=== PATIENT | female | born 1945 | race Caucasian/White ===

== ENCOUNTER 2023-09-02 11:35 | Inpatient (IN) | payer OTHER ==
[~2023-09-02] VITALS: Ht 165.1 cm; Wt 101.6 kg
[~2023-09-02 11:35] MED LIST: ASPI-1749 PO; DOCU-299 PO; GABA300C PO; LISI-953 PO; LORA10TA19 PO; NITR0.4T2 SL; OMEP40EC24 PO; ROSU5TAB PO; SYN.075 PO
[2023-09-02 11:43] VITALS: BP 142/38; PULSE 52; RESP 18; TEMP 97.8; O2SAT 97
[2023-09-02 12:25] LABS: BASOPHILS % (AUTO) 0.3 % (0.0-2.0); EOSINOPHILS # (AUTO) 0.1 K/uL (0-0.4); EOSINOPHILS % (AUTO) 1.5 % (0.0-4.0); HEMATOCRIT 30.5 % (36-48); HEMOGLOBIN 10.3 g/dL (12.0-16.0); LYMPHOCYTES # (AUTO) 2.1 K/uL (2.5-16.5); LYMPHOCYTES % (AUTO) 26.5 % (20.5-51.1); MEAN CORPUSCULAR HEMOGLOBIN 32 pg (27-31); MEAN CORPUSCULAR HGB CONC 34 g/dL (33-37); MEAN CORPUSCULAR VOLUME 94.4 fL (80-94); MONOCYTES # (AUTO) 0.5 K/uL (0.8-1.0); MONOCYTES % (AUTO) 6.8 % (1.7-9.3); NEUTROPHILS # (AUTO) 5.1 K/uL (1.8-7.7); NEUTROPHILS % (AUTO) 64.9 % (42.2-75.2); PLATELET COUNT (AUTO) 322 K/uL (140-450); RED BLOOD CELL COUNT(AUTO) 3.23 MIL/uL (4.20-5.40); RED CELL DISTRIBUTION WIDTH 12.7 % (11.6-13.7); WHITE BLOOD COUNT (AUTO) 7.9 K/uL (4.8-10.8)
[2023-09-02 12:36] LABS: ANION GAP 9.5 (8-16); CALCIUM 8.7 mg/dL (8.5-10.1); CARBON DIOXIDE 28.3 mmol/L (21-32); CHLORIDE 99 mmol/L (98-107); CREATININE 1.2 mg/dL (0.6-1.3); GLUCOSE 117 mg/dL (74-106); POTASSIUM 3.8 mmol/L (3.5-5.1); SODIUM SERUM 133 mmol/L (136-145); UREA NITROGEN, BLOOD 15 mg/dL (7-18)
[2023-09-02 12:43] LABS: ALANINE AMINOTRANSFERASE 17 U/L (12-78); ALBUMIN 3.2 g/dL (3.4-5.0); ALKALINE PHOSPHATASE 82 U/L (50-136); ASPARTATE AMINOTRANSFERASE 17 U/L (15-37); BILIRUBIN,DIRECT 0.1 mg/dL (0.0-0.3); TOTAL BILIRUBIN 0.3 mg/dL (0.0-1.0); TOTAL PROTEIN, SERUM 6.3 g/dL (6.4-8.2)
[2023-09-02] MEDS ORDERED: ATOR20TA PO (13:38)
[2023-09-02] MEDS ORDERED: CLOP75TA55 PO (13:38)
[2023-09-02] MEDS ORDERED: LEVO88CA2 PO (13:38)
[2023-09-02] MEDS ORDERED: VALS160T2 PO (13:38)
[2023-09-02] MEDS ORDERED: LORazepam 1 MG TAB PO PRN (15:30)
[2023-09-02] MEDS ORDERED: ZOLPIDEM 5 MG TAB PO PRN (15:30)
[2023-09-02] MEDS ORDERED: ONDANSETRON 4 MG/2 ML VIAL IVP PRN (15:30)
[2023-09-02] MEDS ORDERED: hydrALAZINE 20 MG/ML VIAL IVP PRN (15:35)
[2023-09-02 21:33] VITALS: BP 169/46; PULSE 64; RESP 18; TEMP 96.2; O2SAT 100
[2023-09-02 21:38] VITALS: PULSE 71
[2023-09-02] MEDS: ATORVASTATIN 20 MG TAB PO SCH (23:02)
[2023-09-02] MEDS: GABAPENTIN 300 MG CAP PO SCH (23:03)
[2023-09-02] MEDS: VALSARTAN 80 MG TAB PO SCH (23:03)
[2023-09-03] VITALS (8 sets, daily range): BP systolic 102–153; BP diastolic 36–82; PULSE 56–70; RESP 16–18; TEMP 96.2–98.3; O2SAT 96–100
[2023-09-03 05:37] LABS: BASOPHILS % (AUTO) 0.4 % (0.0-2.0); EOSINOPHILS # (AUTO) 0.1 K/uL (0-0.4); EOSINOPHILS % (AUTO) 1.2 % (0.0-4.0); LYMPHOCYTES # (AUTO) 2.5 K/uL (2.5-16.5); LYMPHOCYTES % (AUTO) 38.9 % (20.5-51.1); MEAN CORPUSCULAR HEMOGLOBIN 32 pg (27-31); MEAN CORPUSCULAR HGB CONC 35 g/dL (33-37); MEAN CORPUSCULAR VOLUME 93.5 fL (80-94); MONOCYTES # (AUTO) 0.4 K/uL (0.8-1.0); MONOCYTES % (AUTO) 5.6 % (1.7-9.3); NEUTROPHILS # (AUTO) 3.5 K/uL (1.8-7.7); NEUTROPHILS % (AUTO) 53.9 % (42.2-75.2); PLATELET COUNT (AUTO) 311 K/uL (140-450); RED CELL DISTRIBUTION WIDTH 12.4 % (11.6-13.7); WHITE BLOOD COUNT (AUTO) 6.5 K/uL (4.8-10.8)
[2023-09-03] MEDS: LEVOTHYROXINE 0.088 MG TAB PO SCH (06:13)
[2023-09-03 06:23] LABS: ALANINE AMINOTRANSFERASE 17 U/L (12-78); ALBUMIN 2.9 g/dL (3.4-5.0); ALKALINE PHOSPHATASE 77 U/L (50-136); ANION GAP 12.4 (8-16); ASPARTATE AMINOTRANSFERASE 10 U/L (15-37); CALCIUM 8.7 mg/dL (8.5-10.1); CARBON DIOXIDE 24.5 mmol/L (21-32); CHLORIDE 102 mmol/L (98-107); CREATININE 0.9 mg/dL (0.6-1.3); GLUCOSE 109 mg/dL (74-106); POTASSIUM 3.9 mmol/L (3.5-5.1); SODIUM SERUM 135 mmol/L (136-145); TOTAL BILIRUBIN 0.3 mg/dL (0.0-1.0); TOTAL PROTEIN, SERUM 5.9 g/dL (6.4-8.2); UREA NITROGEN, BLOOD 15 mg/dL (7-18)
[2023-09-03] MEDS ORDERED: LEVOTHYROXINE SODIUM 88 MCG PO SCH (09:00)
[2023-09-03] MEDS: PANTOPRAZOLE 40 MG INJ VIAL IVP SCH (09:59)
[2023-09-03] MEDS: DOCUSATE SODIUM 100 MG GELCAP PO SCH (10:00)
[2023-09-03] MEDS: CLOPIDOGREL 75 MG TAB PO SCH (10:00)
[2023-09-03] MEDS: ASPIRIN 81 MG TAB.CHEW PO SCH (10:00)
[2023-09-03 14:34] LABS: FREE T4 (FREE THYROXINE) 1.29 ng/dL (0.76-1.46); THYROID STIMULATING HORMONE 0.29 uIU/mL (0.34-3.74)
[2023-09-03] MEDS: NACL 0.9% 1,000 ML IV SCH (14:49)
[2023-09-03 20:01] LABS: BILIRUBIN,URINE NEGATIVE (NEGATIVE); BLOOD, URINE NEGATIVE (NEGATIVE); COLOR,URINE YELLOW (YELLOW); LEUKOCYTE ESTERASE ,URINE 1+ (NEGATIVE); NITRITE, URINE NEGATIVE (NEGATIVE); PROTEIN,URINE NEGATIVE (NEGATIVE); UGLUCOSE NEGATIVE (NEGATIVE); UROBILINOGEN,URINE 0.2 EU/dL (0.2 - 1)
[2023-09-03 20:04] LABS: APPEARANCE,URINE SLIGHTLY HAZY (CLEAR)
[2023-09-03 20:16] LABS: BACTERIA,URINE 2+ /HPF (None Seen); MUCUS,URINE None Seen /LPF (None Seen); RBC,URINE 0 /HPF (0-5); SQUAMOUS EPITHELIAL CELL,UR 0-3 (FEW) /LPF (0-3 (FEW)); WBC,URINE 0-5 /HPF (0-5)
[2023-09-04] VITALS (9 sets, daily range): BP systolic 102–135; BP diastolic 44–60; PULSE 54–72; RESP 16–18; TEMP 97–98.3; O2SAT 96–100
[2023-09-04 05:56] LABS: BASOPHILS % (AUTO) 0.2 % (0.0-2.0); EOSINOPHILS # (AUTO) 0.2 K/uL (0-0.4); HEMATOCRIT 27.7 % (36-48); HEMOGLOBIN 9.5 g/dL (12.0-16.0); LYMPHOCYTES # (AUTO) 3.5 K/uL (2.5-16.5); LYMPHOCYTES % (AUTO) 45.4 % (20.5-51.1); MEAN CORPUSCULAR HEMOGLOBIN 32 pg (27-31); MEAN CORPUSCULAR HGB CONC 34 g/dL (33-37); MEAN CORPUSCULAR VOLUME 93.6 fL (80-94); MONOCYTES # (AUTO) 0.5 K/uL (0.8-1.0); NEUTROPHILS # (AUTO) 3.5 K/uL (1.8-7.7); NEUTROPHILS % (AUTO) 45.4 % (42.2-75.2); PLATELET COUNT (AUTO) 303 K/uL (140-450); RED BLOOD CELL COUNT(AUTO) 2.96 MIL/uL (4.20-5.40); RED CELL DISTRIBUTION WIDTH 12.6 % (11.6-13.7); WHITE BLOOD COUNT (AUTO) 7.6 K/uL (4.8-10.8)
[2023-09-04 06:16] LABS: ALANINE AMINOTRANSFERASE 16 U/L (12-78); ALBUMIN 2.8 g/dL (3.4-5.0); ALKALINE PHOSPHATASE 69 U/L (50-136); ANION GAP 10.5 (8-16); ASPARTATE AMINOTRANSFERASE 14 U/L (15-37); CALCIUM 8.6 mg/dL (8.5-10.1); CARBON DIOXIDE 26.5 mmol/L (21-32); CHLORIDE 102 mmol/L (98-107); GLUCOSE 101 mg/dL (74-106); SODIUM SERUM 135 mmol/L (136-145); TOTAL BILIRUBIN 0.2 mg/dL (0.0-1.0); TOTAL PROTEIN, SERUM 5.7 g/dL (6.4-8.2); UREA NITROGEN, BLOOD 20 mg/dL (7-18)
[2023-09-04] MEDS: ACETAMINOPHEN 325 MG TAB PO PRN (17:37)
[2023-09-05] VITALS (9 sets, daily range): BP systolic 125–154; BP diastolic 48–59; PULSE 58–71; RESP 14–19; TEMP 96.3–98.3; O2SAT 96–100
[2023-09-05 10:03] LABS: BASOPHILS % (AUTO) 0.4 % (0.0-2.0); EOSINOPHILS # (AUTO) 0.2 K/uL (0-0.4); HEMATOCRIT 31.1 % (36-48); HEMOGLOBIN 10.5 g/dL (12.0-16.0); LYMPHOCYTES # (AUTO) 2.8 K/uL (2.5-16.5); LYMPHOCYTES % (AUTO) 39.5 % (20.5-51.1); MEAN CORPUSCULAR HEMOGLOBIN 32 pg (27-31); MEAN CORPUSCULAR HGB CONC 34 g/dL (33-37); MEAN CORPUSCULAR VOLUME 93.7 fL (80-94); MONOCYTES # (AUTO) 0.3 K/uL (0.8-1.0); MONOCYTES % (AUTO) 4.6 % (1.7-9.3); NEUTROPHILS # (AUTO) 3.7 K/uL (1.8-7.7); NEUTROPHILS % (AUTO) 52.5 % (42.2-75.2); PLATELET COUNT (AUTO) 302 K/uL (140-450); RED BLOOD CELL COUNT(AUTO) 3.32 MIL/uL (4.20-5.40); RED CELL DISTRIBUTION WIDTH 12.4 % (11.6-13.7); WHITE BLOOD COUNT (AUTO) 7.1 K/uL (4.8-10.8)
[2023-09-05 10:24] LABS: ALANINE AMINOTRANSFERASE 18 U/L (12-78); ALKALINE PHOSPHATASE 77 U/L (50-136); ANION GAP 12.4 (8-16); ASPARTATE AMINOTRANSFERASE 17 U/L (15-37); CALCIUM 8.6 mg/dL (8.5-10.1); CARBON DIOXIDE 24.2 mmol/L (21-32); CHLORIDE 101 mmol/L (98-107); GLUCOSE 121 mg/dL (74-106); POTASSIUM 3.6 mmol/L (3.5-5.1); SODIUM SERUM 134 mmol/L (136-145); TOTAL BILIRUBIN 0.2 mg/dL (0.0-1.0); TOTAL PROTEIN, SERUM 6.1 g/dL (6.4-8.2); UREA NITROGEN, BLOOD 17 mg/dL (7-18)
[2023-09-06] VITALS (7 sets, daily range): BP systolic 123–145; BP diastolic 48–78; PULSE 54–68; RESP 16–20; TEMP 97.1–97.5; O2SAT 96–99
[2023-09-06 06:43] LABS: BASOPHILS % (AUTO) 0.5 % (0.0-2.0); EOSINOPHILS # (AUTO) 0.2 K/uL (0-0.4); EOSINOPHILS % (AUTO) 2.9 % (0.0-4.0); HEMATOCRIT 27.1 % (36-48); HEMOGLOBIN 9.3 g/dL (12.0-16.0); LYMPHOCYTES # (AUTO) 3.1 K/uL (2.5-16.5); MEAN CORPUSCULAR HEMOGLOBIN 32 pg (27-31); MEAN CORPUSCULAR HGB CONC 34 g/dL (33-37); MEAN CORPUSCULAR VOLUME 93.2 fL (80-94); MONOCYTES # (AUTO) 0.4 K/uL (0.8-1.0); NEUTROPHILS # (AUTO) 2.7 K/uL (1.8-7.7); NEUTROPHILS % (AUTO) 42.6 % (42.2-75.2); PLATELET COUNT (AUTO) 300 K/uL (140-450); RED BLOOD CELL COUNT(AUTO) 2.91 MIL/uL (4.20-5.40); RED CELL DISTRIBUTION WIDTH 12.3 % (11.6-13.7); WHITE BLOOD COUNT (AUTO) 6.4 K/uL (4.8-10.8)
[2023-09-06 07:05] LABS: ALANINE AMINOTRANSFERASE 17 U/L (12-78); ALBUMIN 2.8 g/dL (3.4-5.0); ALKALINE PHOSPHATASE 67 U/L (50-136); ANION GAP 8.8 (8-16); ASPARTATE AMINOTRANSFERASE 18 U/L (15-37); CALCIUM 8.3 mg/dL (8.5-10.1); CHLORIDE 102 mmol/L (98-107); CREATININE 0.9 mg/dL (0.6-1.3); GLUCOSE 99 mg/dL (74-106); POTASSIUM 3.8 mmol/L (3.5-5.1); SODIUM SERUM 134 mmol/L (136-145); TOTAL BILIRUBIN 0.2 mg/dL (0.0-1.0); TOTAL PROTEIN, SERUM 5.7 g/dL (6.4-8.2); UREA NITROGEN, BLOOD 14 mg/dL (7-18)
[2023-09-06] MEDS ORDERED: NITR100C7 PO (14:27)
== END 2023-09-06 17:00 | disposition home or self-care (01) | DRG 641 ==
LOC: MED 11:35 → MTU 15:31
PROVIDERS: ADMIT Student in an Organized Health Care Education/Training Program; ATTEND Student in an Organized Health Care Education/Training Program
DX: E86.0 Dehydration (principal); N39.0 Urinary tract infection, site not specified; E87.1 Hypo-osmolality and hyponatremia; R55 Syncope and collapse; I10 Essential (primary) hypertension; K21.9 Gastro-esophageal reflux disease without esophagitis; R07.89 Other chest pain; B96.20 Unspecified Escherichia coli [E. coli] as the cause of diseases classified elsewhere; I73.9 Peripheral vascular disease, unspecified; E03.9 Hypothyroidism, unspecified
CPT/HCPCS: 36415; 70450; 71045; 80048; 80053; 80076; 81001; 82550; 83880; 84439; 84443; 84484; 85025; 87081; 87086; 87186; 93005; 93880; 97110; 97116; 97163-GP; 97530; 99285; J2470; Q0092